=== PATIENT | male | born 1995 | race Hispanic/Latino ===

== ENCOUNTER 2017-04-24 08:48 | Emergency (ER) | payer BC ==
[~2017-04-24] VITALS: Ht 180.3 cm; Wt 90.0 kg
[~2017-04-24 08:48] MED LIST: LORTAB5 PO
[2017-04-24 09:19] LABS: HEMATOCRIT 49.2 % (39.0-50.0); HEMOGLOBIN 16.5 g/dl (14.0-18.0); IMMATURE GRANULOCYTES 0.3 % (0.0-1.0); MEAN CELL VOLUME 89.6 fL CALC (80.0-100.0); MEAN CORPUSCULAR HGB 30.1 pG CALC (26.0-32.0); MEAN CORPUSCULAR HGB CONC 33.5 g/L CALC (32.0-36.0); NEUT# 3.65 thou/uL (1.82-7.42); RED BLOOD COUNT 5.49 mill/uL (4.70-6.10); RED CELL DISTRI WIDTH 12.3 % (11.5-15.5)
[2017-04-24 09:50] LABS: ANION GAP 17 (6-22 (CALC)); BUN 17 mg/dL (9-20); BUN/CREATININE RATIO 19 (12-20 (CALC)); CARBON DIOXIDE 25 mmol/l (22-30); CHLORIDE 104 mmol/l (95-108); CREATININE 0.9 mg/dL (0.7-1.3); GFR > 60 ML/MIN (>=60 (CALC)); GFR FOR AFR.AMER. > 60 ML/MIN (>=60 (CALC)); POTASSIUM 4.4 mmol/l (3.5-5.1); SODIUM 142 mmol/l (137-146)
[2017-04-24 13:24] VITALS: BP 113/61
== END 2017-04-24 13:24 | disposition home or self-care (01) | DRG 313 ==
LOC: ED 08:48
PROVIDERS: Family Medicine
DX: R07.89 Other chest pain (principal)